=== PATIENT | male | born 2005 | race Caucasian/White ===

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

== ENCOUNTER 2025-09-11 12:00 | Outpatient (REF) | payer MEDICAID, SELFPAY ==
--- OUTSIDE RECORDS SUMMARY | 2025-09-11 11:15 | XMS_ITS | Encounter Summary ---
Author Organization [employer] Address [address] [place] [address] Care Team Providers Care Staff Radiologist Name Role Phone Julien Osborn MD Primary Care Prov ider Encounter Details Date Type Department Care Team (Late st Contact Info) Description 09/11/2025 11:15 AM EST Office Visit [facility] [address] [place], [place] [phone] Ruth Gore MD [address] [place] [address] Influenza-like illness (Primary Dx); Underweight; Dietary counseling; Exercise counseling Social History Tobacco Use Types Packs/Day Years Used Date Smoking Tobacco: Never Smokeless Tobacco: Never Alcohol Use Standard Drinks/Week Comments Never 0 (1 standard drink = 0.6 oz pur e alcohol) Depression Answer Date Recorded Patient Health Questionnaire-9 Score 0 09/17/2024 Patient Health Questionnaire-9 Score 0 09/17/2024 Last PHQ-9: Questionnaire Data Not on file 1 11/18/2023 Depression Answer Date Recorded Patient Health Questionnaire-2 Score 0 09/17/2024 Sex and Gender Information Value Date Recorded Sex Assigned at Male 07/26/2022 10:19 AM EDT Legal Sex Male 10:19 AM EDT Gender Identity Male 07/26/2022 10:19 AM EDT Sexual Orientation Straight 07/26/2022 10 :19 AM EDT documented as of this encounter Last Filed Vital Signs Vital Sign Reading Time Taken Comments Blood Pressure 120/50 09/11/2025 11:34 AM EST Pulse 72 09/11/2025 11:34 AM EST Temperature 36.7 C (98 F) 09/11/2025 11:34 AM EST Respiratory Rate 20 09/11/2025 11:34 AM EST Oxygen Saturation - - Inhaled Oxygen Concentration - - Weight 53.6 kg (118 lb 3.2 oz) 09/11/2025 11:34 AM EST Height 179.2 cm (5' 10.55 ) 09/11/2025 11:34 AM EST Body Mass Index 16.7 09/11/2025 11:34 AM EST documented in this encounter Progress Notes * Ruth Gore MD - 09/11/2025 11:15 AM EST SUBJECTIVE: Tien Nieto is a 19 y.o. year old male who presents for sick visit/weakness. Denies recent illness, injury, or hospitalization. Acute Concerns: Five days prior to presentation, woke with malaise followed by vomiting. Since onset, reports intermittent shortness of breath, CP that last 2-3h, nocturnal sweats, chills, weakness, and fatigue. Experienced diarrhea x 2d, last episode two days prior and ? Melena or very dark stool. Eating has beenlimited due to sore throat. Denies dysuria or urinary burning. Reported weight loss over the past six months; attempts to eat three meals daily to gain weight. He smokes THC , not nicotine, he doesn't vape. Denies using any other recreational substance. Social History Social History Narrative Not on file Problem List[1] Family History[2] Review of Systems Constitutional: Positive for chills, fatigue and fever. HENT: Positive for sore throat. Negative for congestion, ear pain and rhinorrhea. Eyes: Negative for pain and discharge. Respiratory: Positive for shortness of breath. Negative for cough. Cardiovascular: Negative for chest pain. Gastrointestinal: Positive for abdominal pain, nausea and vomiting. Negative for constipation and diarrhea. Endocrine: Negative for polydipsia. Genitourinary: Negative for dysuria and frequency. Musculoskeletal: Negative for arthralgias, back pain and neck pain. Neurological: Negative for dizziness, numbness and headaches. Psychiatric/Behavioral: Negative for agitation. OBJECTIVE: Vitals: 09/11/25 1134 BP: 120/50 Pulse: 72 Resp: 20 Temp: 98 ??F (36.7 ??C) Physical Exam Constitutional: Appearance: Normal appearance. HENT: Right Ear: Tympanic membrane and ear canal normal. Left Ear: Tympanic membrane and ear canal normal. Mouth/Throat: Mouth: Mucous membranes are moist. Pharynx: No oropharyngeal exudate or posterior oropharyngeal erythema. Eyes: Pupils: Pupils are equal, round, and reactive to light. Cardiovascular: Rate and Rhythm: Normal rate and regular rhythm. Heart sounds: No murmur heard. Pulmonary: Breath sounds: Normal breath sounds. No wheezing. Abdominal: General: Bowel sounds are normal. Palpations: Abdomen is soft. Tenderness: There is no abdominal tenderness. Musculoskeletal: General: No tenderness. Normal range of motion. Cervical back: Normal range of motion. No tenderness. Skin: General: Skin is warm. Neurological: General: No focal deficit present. Mental Status: He is alert and oriented to person, place, and time. Psychiatric: Mood and Affect: Mood normal. Encounter Date: 09/11/25 ECG 12 lead Narrative NSR@72 bpm, normal axis, no ST/T abn Office Visit on 09/11/2025 Component Date Value Ref Range Status Glucose Blood, POC 09/11/2025 115 60 - 200 mg/dL Final QC Media Lot # 09/11/2025 [id number] Final Lot# Expiration Date 09/11/2025 [id number] Final Hemoglobin 09/11/2025 14.5 13.0 - 17.0 Final QC Media Lot # 09/11/2025 [id number] Final Lot# Expiration Date 09/11/2025 [id number] Final Influenza A 09/11/2025 Negative Negative, Indeterminate Final QC Media Lot # 09/11/2025 [id number] Final Lot# Expiration Date 09/11/2025 [id number] Final Influenza B 09/11/2025 Negative Negative, Indeterminate Final QC Media Lot # 09/11/2025 [id number] Final Lot# Expiration Date 09/11/2025 [id number] Final Problem List Items Addressed This Visit Influenza-like illness - Primary Rapid viral tests today are NEG, but he could've probably started as Influenza and is now recovering Order labs to ro electrolyte disbalance Rest (sleep at least 8 hours a night). Hydrate with plenty of water (avoid caffeine and alcohol). Use saline nose drops to loosen mucus Take Acetaminophen (Tylenol??) as needed to reduce fever, headache, body aches or discomfort Will prescription TUMS prn abdominal pain so he can eat. Gargle with salt water and use throat sprays/lozenges for throat pain. Use heated, humidified air. If you do not have a humidifier, take hot showers. Cover coughs and sneezes using the crook of your elbow. If you have a fever, stay home and away from others (self isolation) until fever-free for 72 hours (temperature should be less than 100??F without medication). Relevant Orders Basic Metabolic Panel Magnesium POCT Glucose (Completed) POCT Hemoglobin (Completed) POCT Rapid Influenza A WELCH ID NOW (Completed) POCT Rapid Influenza B WELCH ID NOW (Completed) ECG 12 lead (Completed) Underweight He's lost 5 lb this year. Order labs to ro underlying condition, including STIs. Advised to avoid using drugs or alcohol. ROMANA rueda PCP Relevant Orders Basic Metabolic Panel HIV-1/2 Antigen and Antibodies, Fourth Generation, with Reflexes Hepatitis Panel, General Syphilis Screen TSH with Reflex to Free T4 POCT Glucose (Completed) POCT Hemoglobin (Completed) Other Visit Diagnoses Dietary counseling Exercise counseling This note was drafted using Ambient (AI) technology. The patient/patient's guardian has been informed and has consented to the use of this technology: Yes No follow-ups on file. Medications Ordered Prior to Encounter[3] [1] Patient Active Problem List Diagnosis Attention deficit hyperactivity disorder Mental health problem Encounter for medical examination to establish care Balanitis Influenza-like illness Underweight [2] Family History Problem Relation Name Age of Onset No Known Problems Mother No Known Problems Father [3] Current Outpatient Medications on File Prior to Visit Medication Sig Dispense Refill Sodium Fluoride 1.1 % gel Bowers with pea size amount every night. Floss between teeth. Spit out excess. Do not rinse. No current facility-administered medications on file prior to visit. documented in this encounter Miscellaneous Notes * Assessment & Plan Note - Ruth Gore MD - 09/11/2025 1:56 PM EST Associated Problem(s): Influenza-like illness Rapid viral tests today are NEG, but he could've probably started as Influenza and is now recovering Order labs to ro electrolyte disbalance Rest (sleep at least 8 hours a night). Hydrate with plenty of water (avoid caffeine and alcohol). Use saline nose drops to loosen mucus Take Acetaminophen (Tylenol??) as needed to reduce fever, headache, body aches or discomfort Will prescription TUMS prn abdominal pain so he can eat. Gargle with salt water and use throat sprays/lozenges for throat pain. Use heated, humidified air. If you do not have a humidifier, take hot showers. Cover coughs and sneezes using the crook of your elbow. If you have a fever, stay home and away from others (self isolation) until fever-free for 72 hours (temperature should be less than 100??F without medication). * Assessment & Plan Note - Ruth Gore MD - 09/11/2025 1:52 PM EST Associated Problem(s): Underweight He's lost 5 lb this year. Order labs to ro underlying condition, including STIs. Advised to avoid using drugs or alcohol. ROMANA rueda PCP documented in this encounter Plan of Treatment Upcoming Encounters Date Type Department Care Team (Late st Contact Info) Description 10/07/2025 1:45 PM EST Office Visit [facility] [address], [place] [phone] Julien Osborn MD [address] [place], [place] [phone] Scheduled Orders Name Type Priority Associated Diagnoses Orde r Schedule HIV-1/2 Antigen and Antibodies, Fourth Generation, with Reflexes Lab Routine Underweight Expected: 09/11/2025 (Approximate), Expires: 09/11/2026 Hepatitis Panel, General Lab Routine Underweight Expected: 09/11/2025 (Approximate), Expires: 09/11/2026 Syphilis Screen Lab Routine Underweight Expected: 09/11/2025 (Approximate), Expires: 09/11/2026 documented as of this encounter Procedures Procedure Name Priority Date/Time Associated Diagnosis Comments ECG 12-LEAD Routine 09/11/2025 2:00 PM EST Influenza-like illness POCT GLUCOSE Routine 09/11/2025 12:16 PM EST Influenza-like illness Underweight POCT INFLUENZA A (ID NOW RAPID MOLECULAR) Routine 09/11/2025 12:15 PM EST Influenza-like illness POCT HEMOGLOBIN Routine 09/11/2025 12:15 PM EST Influenza-like illness Underweight TSH W/REFLEX TO FT4 Routine 09/11/2025 1 2:14 PM EST Underweight MAGNESIUM Routine 09/11/2025 12:14 PM EST Influenza-like illness BASIC METABOLIC PANEL Routine 09/11/2025 12:14 PM EST Influenza-like illness Underweight POCT INFLUENZA B (ID NOW RAPID MOLECULAR) Routine 09/11/2025 12:13 PM EST Influenza-like illness documented in this encounter Results * ECG 12 lead (09/11/2025 2:00 PM EST) Narrative Ruth Gore MD - 09/11/2025 2:00 PM EST NSR@72 bpm, normal axis, no ST/T abn Ruth Gore MD ECG ORDERABLES Final Re sult * POCT Glucose (09/11/2025 12:16 PM EST) Glucose Blood, POC 115 60 - 200 mg/dL QC Media Lot # [id number] Lot# Expiration Date Blood Capillary blood specimen / Unknown 09/11/2025 12:16 PM EST Ruth Gore MD POINT OF CARE TEST ENTER /EDIT ORDERABLES Final Result * POCT Rapid Influenza A WELCH ID NOW (09/11/2025 12:15 PM EST) Influenza A Negative Negative, Indeterminate [facility] QC Media Lot # [id number] [facility] Lot# Expiration Date [id number] [facility] Swab 09/11/2025 12:1 5 PM EST Ruth Gore MD POINT OF CARE TEST ENTER /EDIT ORDERABLES Final Result Performing Organization Address [facility] Co de Phone Number [facility] [address] [place] [phone] * POCT Hemoglobin (09/11/2025 12:15 PM EST) Hemoglobin 14.5 13.0 - 17.0 QC Media Lot # [id number] Lot# Expiration Date Blood 09/11/2025 12:1 5 PM EST Ruth Gore MD POINT OF CARE TEST ENTER /EDIT ORDERABLES Final Result * TSH with Reflex to Free T4 (09/11/2025 12:14 PM EST) TSH reflex Free T4 0.83 0.32 - 4.0 uIU/mL [facility] Blood 09/11/2025 12:1 4 PM EST 09/11/2025 2:20 PM EST Ruth Gore MD LAB BLOOD ORDERABLES Fin al Result Performing Organization Address City/[facility]/ZIP Co de Phone Number [facility] [address] [place] [phone] * Magnesium (09/11/2025 12:14 PM EST) Magnesium 2.0 1.6 - 2.6 mg/dL [facility] Blood Venous blood specimen / Unknown 09/11/2025 12:14 PM EST 09/11/2025 2:20 PM EST Ruth Gore MD LAB BLOOD ORDERABLES Fin al Result Performing Organization Address [facility]/ZIP Co de Phone Number [facility] [address] [place] [phone] * Basic Metabolic Panel (09/11/2025 12:14 PM EST) Sodium 139 135 - 145 mmol/L [facility] Potassium 4.2 3.3 - 5.1 mmol/L [facility] Chloride 105 96 - 108 mmol/L [facility] Carbon Dioxide 26 22 - 29 mmol/L [facility] Anion Gap 12 12 - 20 [facility] Urea Nitrogen (BUN) 15 9 - 16 mg/dL [facility] Creatinine, Serum 1.11 0.5 - 1.4 mg/dL [facility] Estimated Glomerular Filt Rate >60 [facility] Comment:Chronic Kidney Disea se: Estimated GFR < 60 mL/min/1.72l7Eathlx Kidney Disease: Estimated GFR < 15 mL/min/1.73m2 Glucose 94 60 - 115 mg/dL [facility] Calcium 9.4 8.4 - 10.2 mg/dL [facility] Blood Venous blood specimen / Unknown 09/11/2025 12:14 PM EST 09/11/2025 2:20 PM EST us Ruth Gore MD LAB BLOOD ORDERABLES Fin al Result Performing Organization Address City/[facility]/ZIP Co de Phone Number [facility] [address] [place] [phone] * POCT Rapid Influenza B WELCH ID NOW (09/11/2025 12:13 PM EST) Influenza B Negative Negative, Indeterminate [facility] QC Media Lot # [id number] [facility] Lot# Expiration Date [id number] [facility] Swab 09/11/2025 12:1 3 PM EST Ruth Gore MD POINT OF CARE TEST ENTER /EDIT ORDERABLES Final Result [facility] [address] [place] [phone] documented in this encounter Visit Diagnoses Diagnosis Influenza-like illness- Primary Underweight Dietary counseling Dietary surveillance and counseling Exercise counseling documented in this encounter Additional Health Concerns Assessment Noted Time PHQ-9 Depression Total Score: 0 09/17/20 1:51 PM EST documented as of this encounter Care Teams Staff Radiologist Relationship Specialty Start Date End Date Julien Osborn MD [address] [place] [phone] PCP - General Internal Medicine 09/22/24 documented as of this encounter
[2025-09-11 14:58] LABS: Anion Gap 12 (12-20); Blood Urea Nitrogen 15 mg/dL (9-16); Calcium 9.4 mg/dL (8.4-10.2); Carbon Dioxide 26 mmol/L (22-29); Chloride 105 mmol/L (96-108); Estimated Glomerular Filt Rate > 60; Magnesium 2.0 mg/dL (1.6-2.6); Potassium 4.2 mmol/L (3.3-5.1); Sodium 139 mmol/L (135-145)
--- OUTSIDE RECORDS SUMMARY | 2025-09-11 15:54 | XMS_ITS | Encounter Summary ---
Author Organization [facility] Address [address] [place] [phone] Phone Care Team Providers Care Riveting Machine Operator Name Role Phone Shreya Ray MD Primary Care Provider [phone] Reason for Visit * Reason Onset Date Comments needs assessment 12/04/2020 Encounter Details Date Type Department Care Team ([facility] Contact Info) Description 12/04/2020 Patient Outreach [address] [address] Zi Ley [place] needs assessment Social History Tobacco Use Types Packs/Day Years Used Date Smoking Tobacco: Never Smokeless Tobacco: Never Comments:Never smoker Alcohol Use Standard Drinks/Week Comments No 0 (1 standard drink = 0.6 oz pur e alcohol) Hunger/Food Answer Date Recorded In the last 12 months, did y ou or your family ever eat less than you felt you should because there wasn't enough money for food? No 12/04/2020 Stable Housing Answer Date Recorded Are you worried that in the next 2 months you may not have stable housing? No 12/04/2020 Transportation Concerns Answer Date Rec orded In the last 12 months, have you or your family ever had to go without healthcare because you didn't have a way to get there? No 12/04/2020 Hazards in Home Answer Date Recorded Think about the place you li ve. Do you have problems with any of the following? Pests (mice or roaches), mold, no/not working smoke detectors, water leaks, no window guards. No 2020 Financing Utilities Answer Date Recorde d In the last 12 months, has t he electric, gas, oil, or water company threatened to shut off your services in your home? No 12/04/2020 Safety at Home Answer Date Recorded Are you or your family worried about feeling saf e in your home? No 12/04/2020 Outside Support Answer Date Recorded Do you feel that you need mo re support from other people or programs to help you care for yourself or your family? Yes 12/04/2020 Understanding Health Concerns Answer Da te Recorded Do you need help understandi ng your or your child's healthcare needs (diagnosis, medications, plan, etc.)? No 12/04/2020 Financing Health Concerns Answer Date R ecorded In the last 12 months, was t here a time when your child needed to see a doctor or get medications or supplies but could not because of cost? No 12/04/2020 Missing School or Work Answer Date Abhi rded Did you or your child miss s chool or work because of a health problem that could have been avoided? No 12/04/2020 Sex and Gender Information Value Date Recorded Sex Assigned at Male 12/04/2020 9:44 AM EST Legal Sex Male 4:52 PM EDT Gender Identity Male 12/04/2020 9:44 AM EST Sexual Orientation Straight 12/04/2020 9: 44 AM EST documented as of this encounter Plan of Treatment Not on file documented as of this encounter Goals Goal Patient Goal Type Associated Problems Recent Progress Patient-Stated? Author Patient will have all the supports needed at school Care Plan Patent/family needs assistance beginning the IEP process No Zi Ley [place] documented as of this encounter Visit Diagnoses Diagnosis Counseling and coordination of care documented in this encounter Additional Health Concerns Active Problems Noted Date Diagnosed Date Patent/family needs assistance beginning the IEP process 12/04/2020 Note: Mom states, had an IEP when in grammar school. Is struggling in school, even before COVID. documented as of this encounter Care Teams Riveting Machine Operator Relationship Specialty Start Date End Date Shreya Ray MD [address] [place] [address] PCP - General Pediatrics 03/28/19 07/31/24 documented as of this encounter
--- OUTSIDE RECORDS SUMMARY | 2025-09-11 15:54 | XMS_ITS | Encounter Summary ---
Author Organization [facility] Address [address] [place] [phone] Phone Care Team Providers Care Java Consultant Name Role Phone Shreya Ray MD Primary Care Provider [phone] Encounter Details Date Type Department Care Team (Late st Contact Info) Description 05/12/2017 Conversion Encounter [facility] [address] [place] [address] Social History Tobacco Use Types Packs/Day Years Used Date Smoking Tobacco: Never Comments:Never smoker Sex and Gender Information Value Date Recorded Sex Assigned at Male 12/04/2020 9:44 AM EST Legal Sex Male 4:52 PM EDT Gender Identity Male 12/04/2020 9:44 AM EST Sexual Orientation Straight 12/04/2020 9: 44 AM EST documented as of this encounter Plan of Treatment Not on file documented as of this encounter Visit Diagnoses Not on filedocumented in this encounter Care Teams Java Consultant Relationship Specialty Start Date End Date Shreya Ray MD [address] [place] [address] PCP - General Pediatrics 03/28/19 07/31/24 documented as of this encounter
--- OUTSIDE RECORDS SUMMARY | 2025-09-11 15:54 | XMS_ITS | Encounter Summary ---
Author Organization [facility] Address [address] [place] [phone] Phone Care Team Providers Care Aircraft Magneto Mechanic Name Role Phone Shreya Ray MD Primary Care Provider [phone] Encounter Details Date Type Department Care Team (Late st Contact Info) Description 02/14/[address] [facility] Family Medicine [address] [place] [address] Family Medicine, Physician [address] [place], [place] [phone] Social History Tobacco Use Types Packs/Day Years [...] on filedocumented in this encounter Care Teams Aircraft Magneto Mechanic Relationship Specialty Start Date End Date Shreya Ray MD [address] [place] [phone] PCP - General Pediatrics 03/28/19 07/31/24 documented as of this encounter
--- OUTSIDE RECORDS SUMMARY | 2025-09-11 15:54 | XMS_ITS | Clinical Summary ---
Author Organization [facility] Address [address] [place] [phone] Phone Care Team Providers Care Systems Design Engineer Name Role Phone Unavailable Primary Care Provider Unavailabl e Allergies No known active allergies Medications ibuprofen 600 MG tablet TAKE 1 TABLET BY MOUTH EVERY 8 HOURS WITH FOOD 0 10/24/2018 Active Active Problems Problem Noted Date Diagnosed Date Teen parent 02/24/2023 Overview (02/24/2023): Daughter born 08/20/21, lives with Tien and his family part-time and her mom part-time. Learning difficulty 04/02/2019 Overview (12/04/2020): Had IEP in elementary school, but mom says it was taken away for high school. Assessment & Plan (12/04/2020 9:34 AM EST): [facility] [place] help mom with how to advocate for IEP. Mild scoliosis 04/02/2019 Overview (12/04/2020): 04/13- up to 5 degrees on scoliometer, no change 12/04/20. Assessment & Plan (04/02/2019 4:01 PM EDT): Check at next PE, sooner if concerns. ADHD 04/02/2019 Overview (04/02/2019): Per mom, was diagnosed at 4yo at [facility]. Mom not interested in meds. Assessment & Plan (12/04/2020 9:34 AM EST): Still not interested in meds for this. Migraine with aura and witho ut status migrainosus, not intractable 06/28/2017 Assessment & Plan (12/04/2020 9:35 AM EST): Not getting HAs much anymore. Assessment & Plan (06/28/2017 5:21 PM EDT): With confusional aura, then headache Panic anxiety syndrome 06/28/2017 Overview (04/02/2019): Diagnosed by [facility] by Dr. Reyna 07/12 Assessment & Plan (04/02/2019 3:51 PM EDT): Last panic attack was a couple months ago. Not interested in treatment currently. Assessment & Plan (06/28/2017 5:45 PM EDT): Part of picture, on SCARED, meets criteria for panic disorder, separation anxiety, and school avoidance Taught him diaphragmatic breathing, preferred to keep eyes open, felt feelings of unreality imagining favorite place (beach) so taught him here and now approach, (feet on the floor, seat on the chair, etc.) Conduct and emotional disorder, mixed 06/28/2017 Assessment & Plan (04/02/2019 3:52 PM EDT): Denies SI, self-harm, access to guns. Not interested in treatment at this time. Assessment & Plan (06/28/2017 5:20 PM EDT): Leaving him prone to panic attacks/somatic symptoms Resolved Problems Problem Noted Date Diagnosed Date Resolved Date History of COVID-19 12/04/2020 02/25/20 23 Overview (12/04/2020): Pos test 10/24/20. Mildly symptomatic (HAs, rhinorrhea,m no fevers). Cleared for physical activity at well visit 12/14. Assessment & Plan (12/04/2020 10:18 AM EST): Cleared for physical activity today. Counseling and coordination of care 12/04/2020 10/19/2021 Disorientation 06/28/2017 09/09/2017 Assessment & Plan (06/28/2017 5:20 PM EDT): May be prodrome to panic, migraines, but rule out partial complex seizure Dizziness 06/28/2017 09/09/2017 Assessment & Plan (06/28/2017 5:21 PM EDT): Anxiety or migraine related, probably Tachycardia 06/28/2017 09/09/2017 Assessment & Plan (06/28/2017 5:21 PM EDT): Part of anxiety and/or migraine, rule out seizure Conduct and emotional disorder, mixed Leaving him prone to panic attacks/somatic symptoms Disorientation May be prodrome to panic, migraines, but rule out partial complex seizure Dizziness Anxiety or migraine related, probably Migraine with aura and without status migrainosus, not intractable With confusional aura, then headache Panic anxiety syndrome Part of picture Tachycardia Part of anxiety and/or migraine, rule out seizure 1. Disorientation EEG 2. Migraine with aura and without status migrainosus, not intractable 3. Panic anxiety syndrome 4. Dizziness 5. Tachycardia 6. Conduct and emotional disorder, mixed Immunizations Immunization Administration Dates Next Due DTaP 5 01/17/2008, 5,06/08/2004,04/06,02/10/2004 HPV Vaccine 9 Valent 04/01/2016 HPV, Quadrivalent 02/07/2015 Hep A, ped/adol 04/10/2007,12/03/2005 Hep B, ped/adol 06/08/2004,04/06/2004,02/10/2004 Hib (HbOC) 06/29/2005,04/06/2004,02/10/2004 IPV 01/17/2008, 4,04/06/2004,02/09 Influenza Split 07/16/2013 Influenza, injectable, quadr ivalent, preservative free 02/24/2023,12/04/2020,12/07/2019,09/09 Influenza, intranasal, trivalent 06/28/2008 MMR 01/17/2008,06/29/2005 Meningococcal Conj (Menactra) MCV4P 12/04/2020,0 02/07/2015 Pneumococcal Conjugate 12/03/2005,2004,07/15/2004,06/08 Tdap 02/07/2015 Varicella 01/17/2008,06/29/2005 Family History Medical History Relation Name Comments No Known Problems Brother Trisha Odonnell No Known Problems Father Alec Nieto No Known Problems Mother Jeanna Richards No Known Problems Sister 1 Sandy Garcia Relation Name Status Comments Brother Trisha Odonnell Alive Father Alec Nieto Alive Mother Jeanna Richards Alive Sister 1 Sandy Garcia Alive Sister 2 Gabrielle Nieto Alive Social History Tobacco Use Types Packs/Day Years Used Date Smoking Tobacco: Never Smokeless Tobacco: Never Tobacco Cessation:Counseling Given: Yes Comments:Never smoker Alcohol Use Standard Drinks/Week Comments No 0 (1 standard drink = 0.6 oz pur e alcohol) Hunger/Food Answer Date Recorded In the last 12 months, did rekha herrera or your family ever eat less than you felt you should because there wasn't enough money for food? No 02/24/2023 Stable Housing Answer Date Recorded Are you worried that in the next 2 months you may not have stable housing? No 02/24/2023 Transportation Concerns Answer Date Rec orded In the last 12 months, have you or your family ever had to go without healthcare because you didn't have a way to get there? No 02/24/2023 Hazards in Home Answer Date Recorded Think about the place you li ve. Do you have problems with any of the following? Pests (mice or roaches), mold, no/not working smoke detectors, water leaks, no window guards. No 2022 Financing Utilities Answer Date Recorde d In the last 12 months, has t he electric, gas, oil, or water company threatened to shut off your services in your home? No 02/24/2023 Safety at Home Answer Date Recorded Are you or your family worried about feeling saf e in your home? No 02/24/2023 Outside Support Answer Date Recorded Do you feel that you need mo re support from other people or programs to help you care for yourself or your family? No 02/24/2023 Understanding Health Concerns Answer Da te Recorded Do you need help understandi ng your or your child's healthcare needs (diagnosis, medications, plan, etc.)? No 02/24/2023 Financing Health Concerns Answer Date R ecorded In the last 12 months, was t here a time when your child needed to see a doctor or get medications or supplies but could not because of cost? No 02/24/2023 Missing School or Work Answer Date Abhi rded Did you or your child miss s chool or work because of a health problem that could have been avoided? No 02/24/2023 Sex and Gender Information Value Date Recorded Sex Assigned at Male 12/04/2020 9:44 AM EST Legal Sex Male 4:52 PM EDT Gender Identity Male 12/04/2020 9:44 AM EST Sexual Orientation Straight 12/04/2020 9: 44 AM EST Last Filed Vital Signs Vital Sign Reading Time Taken Comments Blood Pressure 119/80 02/24/2023 1:46 PM EDT Pulse 71 12/04/2020 8:54 AM EST Temperature 36.9 C (98.4 F) 09/05/2023 3:34 PM EST Respiratory Rate - - Oxygen Saturation - - Inhaled Oxygen Concentration - - Weight 56.7 kg (125 lb) 09/05/2023 3:34 PM EST Height 177.3 cm (5' 9.8 ) 02/24/2023 1:46 PM EDT Body Mass Index 18.04 02/24/2023 1:46 PM EDT Plan of Treatment Health Maintenance Due Date Last Done Comments Men B Vaccine (1 of 2 - Standard) 2019 DTaP,Tdap,and Td Vaccines (7 - Td or Tdap) 02/07/2025 02/07/2015, 01/17/2008, 06/29/2005, Additional history exists Influenza Vaccines (#1) 2025 02/25/20, 12/04/2020, 12/07/2019, Additional history exists COVID-19 Vaccine (2024-2 6 season) 2025 Hepatitis B Vaccines Completed 06/08/2004, 04/06/2004, 02/10/2004 HIB Vaccines Completed 06/29/2005, 03/26, 02/10/2004 Pneumococcal Vaccine Completed 12/03/2005, 06/29/2005, 07/15/2004, Additional history exists Hepatitis A Vaccines Completed 04/10/2007, 12/04/19 06 IPV Vaccines Completed 01/17/2008, 05/27, 04/06/2004, Additional history exists MMR Vaccines Completed 01/17/2008, 06/29/2005 Varicella Vaccines Completed 01/17/2008, 06/29/2005 HPV Vaccines Completed 04/01/2016, 02/07/2015 Meningococcal Vaccine Completed 12/04/2020, 015 Chlamydia and Gonorrhea Screening Discontinued 09/05/2023, 02/24/2023, 04/02/2019 Goals Goal Patient Goal Type Associated Problems Recent Progress Patient-Stated? Author Patient will have all the supports needed at [facility] Care Plan Patent/family needs assistance beginning the IEP process Zi Mercedes MA Procedures * Due to [facility] law, this organization might not be sharing sensitive test results. Procedure Name Priority Date/Time Associated Diagnosis Comments CHLAMYDIA AND GONORRHEA, AMPLIFIED Routine 09/05/2023 4:33 PM EST Encounter for screening examination for chlamydial infection from Last 3 Months or Most Recently Relevant to Health Maintenance Results * Due to [facility] law, this organization might not be sharing sensitive test results. * Chlamydia and Gonorrhea, Amplified (09/05/2023 4:33 PM EST) Chlamydia Trachomatis, DNA Probe NEGATIVE (NEG) [facility] Comment: No Chlamydia Trachomatis RNA detected in this patient's sample (REFERENCE RANGE/NORMAL VALUE: NOT DETECTED) Note: This test uses manufacturing operations manager- mediated amplification method to detect rRNA from C. Trachomatis URINE GC AMP PROBE NEGATIVE (NEG) [facility] Comment: No Neisseria Gonorrhoeae RNA detected in this patient's sample (REFERENCE RANGE/NORMAL VALUE: NOT DETECTED) NOTE: This test uses manufacturing operations manager-mediated amplification method to detect rRNA from N.Gonorrhoeae. A negative result does not preclude infection. In the case of a negative urine result, testing of an endocervical(female) or urethral (male) specimen is recommended if there is high clinical suspicion of infection. Due to very high sensitivity of Nucleic Acid Amplification Test, false positive results may occur. Therefore, specimen handling is extremely important. In patients in whom the disease is unlikely, additional sample for testing should be considered after an initial positive result. The performance characteristics of this test have not been evaluated in children. The Aptima Combo2 assay is not intended for the evaluation of suspected sexual abuse or for other medico-legal indications. The ordering provider should assess if the patient had consensual sex without risk of sexual abuse. Consult the [facility] if needed. Contact phone number . Therapeutic failure or success cannot be determined with the Aptima Combo2 assay since nucleic acid may persist following appropriate antimicrobial therapy. The Centers for Disease Control and Prevention (CDC) recommends confirmatory retesting using culture or a different nucleic acid amplification test when positive results occur, if indicated. Testing performed or reported by [facility], a Service of [facility], [address] [place] [address] Osmin Shaw MD, Soil Analyst [facility]# [id number] Urine (Urine) 09/05/2023 4:3 3 PM EST 09/05/2023 4:35 PM EST us Heike Gomes MD LAB MICROBIOLOGY - GENERAL ORD ERABLES Final Result [facility] from Last 3 Months or Most Recently Relevant to Health Maintenance Additional Health Concerns Active Problems Noted Date Diagnosed Date Patent/family needs assistance beginning the IEP process 12/04/2020 Note: Mom states, had an IEP when in grammar school. Is struggling in school, even before COVID.
--- OUTSIDE RECORDS SUMMARY | 2025-09-11 15:54 | XMS_ITS | Encounter Summary ---
Author Organization [facility] Address [address] [facility] [facility] [address] [place] [address] Care Team Providers Care Local Company Refrigerated Truck Driver Name Role Phone Julien Osborn MD Primary Care Prov ider Encounter Details Date Type Department Care Team (Latest Contact Info) Description 09/11/2025 Travel Social History Tobacco Use Types Packs/Day Years [...] AM EDT documented as of this encounter Plan of Treatment Upcoming Encounters Date Type Department Care Team ( st Contact Info) Description 10/07/2025 1:45 PM EST Office Visit [facility] PEDS [address] [place] [address] Julien Osborn MD [address] [place] [address] documented as of this encounter Visit Diagnoses Not on filedocumented in this encounter Additional Health Concerns Assessment Noted Time PHQ-9 Depression Total Score: 0 09/17/20 1:51 PM EST documented as of this encounter Care Teams Local Company Refrigerated Truck Driver Relationship Specialty Start Date End Date Julien Osborn MD [address] [place] [id number] PCP - General Internal Medicine 09/22/24 documented as of this encounter
--- OUTSIDE RECORDS SUMMARY | 2025-09-11 15:54 | XMS_ITS | Encounter Summary ---
Author Organization [employer] [facility] Address [address] [facility] [address] [place] [address] Care Team Providers Care Crayon Painter Name Role Phone Julien Osborn MD Primary Care Prov ider Reason for Visit * Reason Onset Date Comments Nurse Triage 09/11/2025 Encounter Details Date Type Department Care Team (Late st Contact Info) Description 09/11/2025 Telephone [facility] MEDICINE [address] [place] [address] Julien Osborn MD [address] [place] [address] Nurse Triage Social History Tobacco Use Types Packs/Day Years [...] AM EDT documented as of this encounter Miscellaneous Notes * Telephone Encounter - Nuris Shrestha RN - 09/11/2025 9:01 AM EST TC incoming from pt significant other who pt asked to call for him. States that a few days ago pt randomly had one episode of emesis. Since this incident pt has been experiencing chest discomfort, sore throat, and decreased po intake. Denies radiation of pain to neck, jaw or arm. Symptoms are constant. Denies fevers, SOB or wheezing. Chest pain with coughing, 04/04. Pt is now resting. Pt scheduledat 11:15 at [facility] with Dr. Gore on 09/11/25. S/o agrees to plan and to notify pt. Protocol Used: Chest Pain (Adult) Protocol-Based Disposition: See in Office or Video Visit Today Video visit offer not recorded Positive Triage Questions: * All other patients with chest pain (Exception: Fleeting chest pain lasting a few seconds.) * Patient wants to be seen * Chest pain(s) lasting a few seconds from coughing * All higher-acuity triage questions were negative. Care Advice Discussed: * Reasons To Call Back - Chest pain increases in frequency, duration or severity - Chest pain lasts over 5 minutes - Difficulty breathing or unusual sweating occurs - Fever over 100.4 F (38.0 C) - You become worse * Telephone Encounter - Amira Gore - 09/11/2025 8:47 AM EST Symptom: Chest Pain - Adult Outcome: Transfer to a nurse or provider NOW! Reason: Heaviness on chest The caller accepted this outcome. documented in this encounter Plan of Treatment Upcoming Encounters Date Type Department Care Team (Late st Contact Info) Description 10/07/2025 1:45 PM EST Office Visit [facility] MED & PEDS [address] [place] [address] Julien Osborn MD [address] [place] [address] documented as of this encounter Visit Diagnoses Not on filedocumented in this encounter Additional Health Concerns Assessment Noted Time PHQ-9 Depression Total Score: 0 09/17/20 24 1:51 PM EST documented as of this encounter Care Teams Crayon Painter Relationship Specialty Start Date End Date Julien Osborn MD [address] [place] [address] PCP - General Internal Medicine 09/22/24 documented as of this encounter
--- OUTSIDE RECORDS SUMMARY | 2025-09-11 15:54 | XMS_ITS | Clinical Summary ---
Author Organization [employer] Address [address] [place] [address] [address] [place] [address] Care Team Providers Care Tube Former Operator Name Role Phone Julien Osborn MD Primary Care Prov ider Allergies No known active allergies Medications Sodium Fluoride 1.1 % gel Bowers with pea size amount every night. Floss between teeth. Spit out excess. Do not rinse. 04/22/2021 Active calcium carbonate (Tums) 500 MG chewable tablet Chew 1 tablet (500 mg) before breakfast, before lunch, and before evening meal for 14 days. 42 tablet 09/11/2025 5 Active Active Problems Problem Noted Date Diagnosed Date Influenza-like illness 09/11/2025 Assessment & Plan (09/11/2025 1:56 PM EST): Rapid viral tests today are NEG, but he could've probably started as Influenza and is now recovering Order labs to ro electrolyte disbalance Rest (sleep at least 8 hours a night). Hydrate with plenty of water (avoid caffeine and alcohol). Use saline nose drops to loosen mucus Take Acetaminophen (Tylenol ) as needed to reduce fever, headache, body [...] 72 hours (temperature should be less than 100 F without medication). Underweight 09/11/2025 Assessment & Plan (09/11/2025 1:52 PM EST): He's lost 5 lb this year. Order labs to ro underlying condition, including STIs. Advised to avoid using drugs or alcohol. ROMANA w PCP Encounter for medical examination to establish c are 09/17/2024 Assessment & Plan (09/17/2024 2:14 PM EST): Pcp 1 year ago Er visit: pneumonia June 2024 Hospitalization:- Pmhx: - Pshx: - All:- Meds: - Lives with mother Works at [employer] 09/17/2024 Assessment & Plan (10/30/2024 12:23 PM EST): Will refer to urology for evaluation, he has been using the creams without improvement in symptoms Assessment & Plan (09/17/2024 2:31 PM EST): Will prescribe clotrimazole cream, keep area dry, will follow up in office Attention deficit hyperactivity disorder 013 Mental health problem 07/14/2012 Encounters Date Type Department Care Team Description 09/11/2025 11:15 AM EST Office Visit [facility] [address] [place] [phone] Ruth Gore MD Influenza-like illness (Primary Dx); Underweight; Dietary counseling; Exercise counseling 09/11/2025 Travel 09/11/2025 Telephone [facility] MED[facility] [address] [place] [phone] Julien Osborn MD Nurse Triage 08/02/2025 Telephone [facility] [address] [place] [address] Julien Osborn MD Nurse Triage 07/23/2025 Telephone [facility] [address] [place], [place] [phone] Julien Osborn MD Nurse Triage 07/05/2025 Telephone [facility] [address] [place] [address] Julien Osborn MD from Last 3 Months Immunizations Immunization Administration Dates Next Due DTaP 01/17/2008, 5,06/08/2004,2003,02/10/2004 HPV 9-Valent 04/01/2016 Hep A, ped/adol, 2 dose 04/10/2007,12/03/2005 Hep B, Adolescent or Pediatric 06/08/2004,2003,02/10/2004 Hib (HbOC) 06/29/2005,04/06/2004,02/10/2004 IPV 01/17/2008, 4,04/06/2004,2003 Influenza injectable quadriv alent preservative free 09/09/2017 Influenza, Split (incl. wanda fied surface antigen) 07/16/2013 Influenza, live, intranasal 06/28/2008 MMR 01/17/2008,06/29/2005 Pneumococcal Conjugate PCV 7 12/03/2005, 06/29/2005,07/15/2004,2003 Varicella 01/17/2008,06/29/2005 Family History Medical History Relation Name Comments No Known Problems Father No Known Problems Mother Relation Name Status Comments Father Mother Social History Tobacco Use Types Packs/Day Years Used Date Smoking Tobacco: Never Smokeless Tobacco: Never Tobacco Cessation:Counseling Given: Not Answered Alcohol Use Standard Drinks/Week Comments Never 0 [...] Orientation Straight 07/26/2022 10 :19 AM EDT Last Filed Vital Signs Vital Sign Reading [...] Mass Index 16.7 09/11/2025 11:34 AM EST Plan of Treatment Upcoming Encounters Date Type Department Care Team (Late st Contact Info) Description 10/07/2025 1:45 PM EST Office Visit [facility] [address] [place] [address] Julien Osborn MD [address] [place] [address] Health Maintenance Due Date Last Done Comments Dental Oral Exam 2003 Dental Prophylaxis 2003 Dental X-Ray: Bitewings 2003 Dental X-Ray: Full Mouth 2003 HIV Screening 2003 SDOH Screening 2003 Disability Screening 2003 Alcohol/Substance Use Screening 2015 Family Planning (PISQ) 12/09/2018 Meningococcal B Vaccine (1 of 2 - Standard) 2019 Hepatitis C Screening 12/09/2021 Chlamydia and Gonorrhea Screening 09/05/2024 09/05/2023, 09/05/2023, 02/24/2023, Additional history exists DTaP/Tdap/Td Vaccines (7 - Td or Tdap) 02/07/2025 02/07/2015, 01/17/2008, 06/29/2005, Additional history exists COVID-19 Vaccine ( - 2024- season) 2025 Influenza Vaccine (#1) 2025 3, 12/04/2020, 12/07/2019, Additional history exists Depression Screening 09/17/2025 09/17/2024, 09/17/20 24 Tobacco Screening 09/17/2025 09/17/2024 Zoster Vaccines (1 of 2) 12/09/2053 RSV Patients and Patients Aged 60 years or older (1 - 1-dose 75+ series) 12/09/2078 Hepatitis B Vaccines Completed 06/08/2004, 04/06/2004, 02/10/2004 HIB Vaccines Completed 06/29/2005, 03/26, 02/10/2004 Pneumococcal Vaccine: Pediatrics (0 to 5 Years) and At-Risk Patients (6 to 49) Years Aged Out 12/03/2005, 06/29/2005, 07/15/2004, Additional history exists No longer eligible based on patient's age to complete this topic Hepatitis A Vaccines Completed 04/10/2007, 12/04/19 06 IPV Vaccines Completed 01/17/2008, 05/27, 04/06/2004, Additional history exists HPV Vaccines Completed 04/01/2016, 02/07/2015 Meningococcal Vaccine Completed 12/04/2020, 015 RSV under 20 months Aged Out No longe r eligible based on patient's age to complete this topic Rotavirus Vaccines Aged Out No longer eligible based on patient's age to complete this topic Procedures Procedure Name Priority Date/Time Associated Diagnosis [...] Routine 09/11/2025 12:13 PM EST Influenza-like illness from Last 3 Months Results * ECG 12 lead (09/11/2025 2:00 PM EST) Narrative Ruth Gore MD - 09/11/2025 2:00 PM EST NSR@72 bpm, normal axis, no ST/T abn Ruth Gore MD ECG ORDERABLES Final Re sult * POCT Glucose (09/11/2025 12:16 PM EST) Pathologist [facility] Glucose Blood, POC 115 60 - 200 mg/dL QC Media Lot # [id number] Lot# Expiration Date Blood Capillary blood specimen / Unknown 09/11/2025 12:16 PM EST Ruth Gore MD POINT OF CARE TEST ENTER /EDIT ORDERABLES Final Result * POCT Rapid Influenza A WELCH ID NOW (09/11/2025 12:15 PM EST) [facility] Influenza A Negative Negative, Indeterminate [facility] QC Media Lot # [id number] [facility] Lot# Expiration Date [facility] Swab 09/11/2025 12:1 5 PM EST Ruth Gore MD POINT OF CARE TEST ENTER /EDIT ORDERABLES Final Result Performing Organization Address City/State/[facility] Co de Phone Number [facility] [address] [place] [phone] * POCT Hemoglobin (09/11/2025 12:15 PM EST) [facility] Hemoglobin 14.5 13.0 - 17.0 QC Media Lot # [id number] Lot# Expiration Date 693, Blood 09/11/2025 12:1 5 PM EST Result [facility] Ruth Gore MD POINT OF CARE TEST ENTER /EDIT ORDERABLES Final Result * TSH with Reflex to Free T4 (09/11/2025 12:14 PM EST) [facility] TSH reflex Free T4 0.83 0.32 - 4.0 uIU/mL [facility] Blood 09/11/2025 12:1 4 PM EST 09/11/2025 2:20 PM EST Ruth Gore MD LAB BLOOD ORDERABLES Fin al Result Performing Organization Address [facility] Co de Phone Number [facility] [address] [place] [phone] * Magnesium (09/11/2025 12:14 PM EST) Magnesium 2.0 1.6 - 2.6 mg/dL [facility] Blood Venous blood specimen / Unknown 09/11/2025 12:14 PM EST 09/11/2025 2:20 PM EST Ruth Gore MD LAB BLOOD ORDERABLES Fin al Result Performing Organization Address [facility] Co de Phone Number [facility] [address] [place] [phone] * Basic Metabolic Panel (09/11/2025 12:14 PM EST) Sodium 139 135 - 145 mmol/L [facility] Potassium 4.2 3.3 - 5.1 mmol/L [facility] Chloride 105 96 - 108 mmol/L [facility] Carbon Dioxide 26 22 - 29 mmol/L [facility] Anion Gap 12 12 - 20 [facility] Urea Nitrogen (BUN) 15 9 - 16 mg/dL [facility] Creatinine, Serum 1.11 0.5 - 1.4 mg/dL [facility] Estimated Glomerular Filt Rate >60 [facility] Comment:Chronic Kidney Disea se: Estimated GFR < 60 mL/min/[id number] Kidney Disease: Estimated GFR < 15 mL/min/1.73m2 Glucose 94 60 - 115 mg/dL [facility] Calcium 9.4 8.4 - 10.2 mg/dL [facility] Blood Venous blood specimen / Unknown 09/11/2025 12:14 PM EST 09/11/2025 2:20 PM EST us Ruth Gore MD LAB BLOOD ORDERABLES Fin al Result Performing Organization Address [facility]/ZIP Co de Phone Number [facility] [address] [place] [address] [phone] * POCT Rapid Influenza B WELCH ID NOW (09/11/2025 12:13 PM EST) Influenza B Negative Negative, Indeterminate [facility] QC Media Lot # [id number] [facility] Lot# Expiration Date [facility] Swab 09/11/2025 12:1 3 PM EST us Ruth Gore MD POINT OF CARE TEST ENTER /EDIT ORDERABLES Final Result Performing Organization Address City/[facility] Co de Phone Number [facility] [address] [place] [address] [phone] from Last 3 Months Insurance C3 [facility] MEDICAID STAND CHILD Care Teams Tube Former Operator Relationship Specialty Start Date End Date Julien Osborn MD [address] [place] [phone] PCP - General Internal Medicine 09/22/24
--- OUTSIDE RECORDS SUMMARY | 2025-09-11 15:54 | XMS_ITS | Encounter Summary ---
Author Organization [facility] Address [address] [place] [phone] Phone Care Team Providers Care Book Packer Name Role Phone Shreya Ray MD Primary Care Provider [phone] Encounter Details Date Type Department Care Team (Late st Contact Info) Description 04/04/2015 Documentation [facility] [address] [place] [address] Family Medicine, Physician [address] [place], [place] [phone] Social History Tobacco Use Types Packs/Day Years Used Date Smoking Tobacco: Never Assessed Sex and Gender Information Value Date Recorded Sex Assigned at Male 12/04/2020 9:44 AM EST Legal Sex Male 4:52 PM EDT Gender Identity Male 12/04/2020 9:44 AM EST Sexual Orientation Straight 12/04/2020 9: 44 AM EST documented as of this encounter Plan of Treatment Not on file documented as of this encounter Visit Diagnoses Not on filedocumented in this encounter Care Teams Book Packer Relationship Specialty Start Date End Date Shreya Ray MD [address] [place] [phone] PCP - General Pediatrics 03/28/19 07/31/24 documented as of this encounter
--- OUTSIDE RECORDS SUMMARY | 2025-09-11 15:54 | XMS_ITS ---
Care Plan Created on: September 11, 2025 Tien Nieto : 2005 Sex: Male Author Organization [facility] Address [address] [place] [phone] Phone Care Team Providers Care Mds Rn Name Role Phone Unavailable Primary Care Provider Unavailabl e Active Problems Problem Noted Date Diagnosed Date Teen parent 02/24/2023 Overview (02/24/2023): Daughter born 08/20/21, lives with Tien and his family part-time and her mom part-time. Learning difficulty 04/02/2019 Overview (12/04/2020): Had IEP in elementary school, but mom says it was taken away for high school. Assessment & Plan (12/04/2020 9:34 AM EST): [facility] to help mom with how to advocate for IEP. Mild scoliosis 04/02/2019 Overview (12/04/2020): 04/13- up to 5 degrees on scoliometer, no change 12/04/20. Assessment & Plan (04/02/2019 4:01 PM EDT): Check at next PE, sooner if concerns. ADHD 04/02/2019 Overview (04/02/2019): Per mom, was diagnosed at 4yo at [facility]. Mom not interested in meds. Assessment & [...] Tachycardia 6. Conduct and emotional disorder, mixed Additional Health Concerns Active Problems Noted Date Diagnosed Date Patent/family needs assistance beginning the IEP process 12/04/2020 Note: Mom states, had an IEP when in grammar school. Is struggling in school, even before COVID. Goals Goal Patient Goal Type Associated Problems Recent Progress Patient-Stated? Author Patient will have all the supports needed at school Care Plan Patent/family needs assistance beginning the IEP process Zi Mercedes [place] Interventions Care Plan Interventions Intervention Entry Date Outcome Patient/family will begin the IEP process 12/04/2020 Related Goals and Interventions Goal Associated Intervent ions Patient will have all the hernandez pports needed at school Patient/family will begin the IEP proces s
[2025-09-12 04:48] LABS: HBS Num1 103.55 mIU/mL (0-7.99); HBc Num1 0.07 S/CO (0.00-0.79); HIV Num 1 0.10 S/CO (0.00-0.99); Hepatitis A Antibody IgM 0.19 Index (0-0.79); ~HepC Num1 0.08 S/CO (0.00-0.79); ~Hepatitis A Antibody IgM Nonreactive (Nonreactive); ~Hepatitis B Surface Antibody REACTIVE (Nonreactive); ~Hepatitis C Antibody Nonreactive (Nonreactive)
[2025-09-12 04:57] LABS: Syphilis Screen Nonreactive (Nonreactive)
[2025-09-12 13:34] LABS: HBsAGNum1 0.29 S/CO (0.00-0.99); Hepatitis B Surface Antigen Negative (Negative)
== END 2025-09-11 12:01 | disposition home or self-care (01) ==
LOC: HO.HHCL 12:00
PROVIDERS: PCP Internal Medicine; Visit Provider Internal Medicine
DX: Z11.4 Encounter for screening for human immunodeficiency virus [HIV] (principal); J11.1 Influenza due to unidentified influenza virus with other respiratory manifestations; Z13.29 Encounter for screening for other suspected endocrine disorder; R63.6 Underweight
CPT/HCPCS: 36415; 80048; 83735; 84443; 86704; 86706; 86709; 86780; 86803; 87340; 87389